=== PATIENT | female | born 1980 | race Two or more races ===

== ENCOUNTER → 2018-01-21 | Day surgery (SDC) | payer MEDICAID ==
[~2018-01-21] VITALS: Ht 160 cm; Wt 77.1 kg
[~2018-01-21] MED LIST: HYDROmorphone HCL 2 MG/ML VL IV PRN; KETOROLAC TROMETH 30 MG/ML 1ML VIAL IV ONE; KETOROLAC TROMETH 60MG/2ML VIAL IM ONE; MEPERIDINE HCL (50 MG/ML) 1 ML VIAL ONE; METOCLOPRAMIDE HCL 5MG/ml INJ 2ml VIAL IV ONE; MIDAZOLAM HCL 1MG/1ML-2 ML VIAL ONE; NEOSTIGMINE 1 MG/ML INJ (10mg/10ML VIAL) ONE; ONDANSETRON HCL 4 MG/2 ML VIAL ONE; PROPOFOL 10 MG/ML 20 ML IV ONE; ROCURONIUM 10MG/ML 10ML VIAL IV ONE; SODIUM CHLORIDE LOCK 10 ML ONE; SUCCINYLCHOLINE CHLORIDE 20 MG/ML 10ML VIAL IV ONE; fentaNYL CITRATE 100 MCG/2 ML VL ONE
[2018-01-21 12:35] VITALS: BP 115/71
== END | disposition home or self-care (01) ==
LOC: SUR 08:49
PROVIDERS: ATTEND Obstetrics & Gynecology Gynecologic Oncology
DX: Z30.2 Encounter for sterilization (principal); E66.9 Obesity, unspecified; Z68.35 Body mass index [BMI] 35.0-35.9, adult; Z90.49 Acquired absence of other specified parts of digestive tract; Z98.890 Other specified postprocedural states
CPT/HCPCS: 58671; J2175; J3010; J0330; J1885; J2250; J2405; J2704